=== PATIENT | male | born 1965 | race Hispanic/Latino ===

== ENCOUNTER 2019-12-10 16:02 | Inpatient (IN) | payer OTHER, SELFPAY ==
[2019-12-10] MEDS ORDERED: Acetaminophen 500 MG TAB ONE (16:13)
[2019-12-10 16:39] LABS: #Lymphocytes 0.7 thou/uL (1.20-3.40); #Monocytes 0.5 thou/uL (0.11-0.59); #Neutrophils 7.7 thou/uL (1.40-6.50); %Eosinophils 0.1 % (0.0-10.0); %Lymphocytes 7.4 % (21.0-51.0); %Monocytes 5.3 % (0.0-10.0); %Neutrophils 87.2 % (42.0-75.0); Hemoglobin 16.6 g/dL (14.0-18.0); Mean Corpuscular HGB CONC 35.2 g/dL (32.0-36.0); Mean Corpuscular Hemoglobin 33.3 pg (27.0-31.0); Mean Corpuscular Volume 94.6 fL (78.0-98.0); Mean Platelet Volume 7.5 fL (7.4-10.4); Platelet Count 256 thou/uL (130-400); RBC Distribution Width 12.9 % (11.5-14.5); Red Blood Cell (RBC) Count 4.98 mill/uL (4.70-6.10); White Blood Cell (WBC) Count 8.8 thou/uL (4.8-10.8)
[2019-12-10] MEDS ORDERED: Cefepime 2 GM VIAL ONE (16:41)
[2019-12-10 16:52] LABS: Bacteria/HPF None Seen HPF (None Seen); Bilirubin Negative (Negative); Blood, Urine Trace (Negative); Clarity Clear (Clear); Glucose, Urine (Dipstick) Normal (Negative); Leukocyte Negative Leu/uL (Negative); Nitrite Negative (Negative); Protein, Urine (Dipstick) 100 mg/dL (Neg-Trace); RBC/HPF 0-3 HPF (0-3); Squamous Epithelial None Seen HPF (0-3)
[2019-12-10 17:13] LABS: ALT (SGPT) 107 U/L (8-55); AST (SGOT) 96 U/L (5-34); Albumin 4.1 g/dL (3.5-5.0); Alkaline Phosphatase 95 U/L (40-110); Anion Gap 15 mmol/L (10-20); BUN (Urea Nitrogen) 11 mg/dL (8.4-25.7); Calc. Creatinine Clearance 0 mL/min (70-130); Calcium 9.6 mg/dL (7.8-10.44); Carbon Dioxide 25 mmol/L (22-29); Chloride 93 mmol/L (98-107); Estimated GFR-MDRD 83; Globulin 4.6 g/dL (2.4-3.5); Glucose 109 mg/dL (70-105); Potassium 3.5 mmol/L (3.5-5.1); Protein, Total 8.7 g/dL (6.0-8.3); Sodium 129 mmol/L (136-145)
[2019-12-10] MEDS ORDERED: Vancomycin 1 GM/200 ML BAG ONE (17:21)
--- NOTE | 2019-12-10 19:49 | PDOC.HHP ---
Hospitalist HPI - History of Present Illness Fever, chills, shortness of breath History of Present Illness: Patient with no significant PMH calls service with cc of about 1 week progression of fever, chills and new onset shortness of breath. Tells me that his fever has been recorded as high as 104. Refers a very mild non-productive cough and shortness of breath that only started today. 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 He has followed standard precautions with all encounters. To his recollection there is no recent sick contacts. In the ED he is noted to be initially tachycardic and febrile with T of 100.6, currently not requiring any oxygen. Chest x-ray does show evidence of RUL infiltrate suggestive of PNA. Hospitalist ROS - Review of Systems Constitutional: reports: fever, chills, sweats, malaise Eyes: denies: pain, vision change, conjunctivae inflammation, eyelid inflammation, redness, other ENT: denies: ear pain, ear discharge, nose pain, nose discharge, nose congestion , mouth pain, mouth swelling, throat pain, throat swelling, other Respiratory: reports: cough, dry, shortness of breath, SOB with excertion. denies: sputum, wheezing Cardiovascular: denies: chest pain, palpitations, orthopnea, paroxysmal noc. dyspnea, edema, light headedness, other Gastrointestinal: denies: nausea, vomiting, abdominal pain, diarrhea, constipation, melena, hematochezia, other Genitourinary: denies: dysuria, frequency, incontinence, hematuria, retention, other Musculoskeletal: denies: neck pain, shoulder pain, arm pain, back pain, hand pain, leg pain, foot pain, other - Medication Medications: No home medications Hospitalist History - Past Medical History Cardiac: denies: no pertinent history, AFIB, CAD, CHF, HTN, MA, Syncope, Hyperlipidemia, Mitral valve stenosis, Aortic stenosis, Valve insufficiency, Pulmonary hypertension, Other Pulmonary: denies: no pertinent history, angina, asthma, bronchitis, CVA/TIA/ stroke, congestive heart failure, COPD, deep vein thrombosis, emphysema, heart attack, high cholesterol, HIV/AIDS, hypertension, lung disease, pneumonia, previously intubated, pulmonary embolism, Other Gastrointestinal: denies: no pertinent history, Constipation, Diverticulosis, GERD, GI bleed, Gastritis, Hemorrhoids, Inflam bowel disease, Irritable bowel disease, Peptic ulcer disease, Other Infectious Disease: denies: no pertinent history, Bacterial vaginosis, [place], Gonorrhea, HIV, Human papilloma virus, Herpes simplex 1, Herpes simplex 2, Herpes zoster, Other - Exam General Appearance: NAD, awake alert ENT: negative: normocephalic atraumatic, no oropharyngeal lesions, moist mucosa , dry oral mucosa Neck: negative: supple, symmetric, no JVD, no thyromegaly, no lymphadenopathy, no carotid bruit, JVD Heart: no murmur, no gallops, no rubs Heart - other findings: Borderline tachycardia of 106 Respiratory: CTAB, no wheezes, no rales, no ronchi Gastrointestinal: soft, non-tender, non-distended, normal bowel sounds Extremities: no cyanosis, no clubbing, no edema Neurological: cranial nerve grossly intact, normal sensation to touch, no weakness, no focal deficits, no new deficit Musculoskeletal: normal tone, normal strength, no muscle wasting Psychiatric: normal affect, normal behavior, A&O x 3 Hospitalist Results - Labs Result Diagrams: 12/10/19 16:25 12/10/19 16:25 Lab results: WBC 8.8 thou/uL (4.8-10.8) 12/10/19 16:25 Hgb 16.6 g/dL (14.0-18.0) 12/10/19 16:25 Hct 47.1 % (42.0-52.0) 12/10/19 16:25 MCV 94.6 fL (78.0-98.0) 12/10/19 16:25 Plt Count 256 thou/uL (130-400) 12/10/19 16:25 Neutrophils % 87.2 % (42.0-75.0) H 12/10/19 16:25 Sodium 129 mmol/L (136-145) L 12/10/19 16:25 Potassium 3.5 mmol/L (3.5-5.1) 12/10/19 16:25 Chloride 93 mmol/L (98-107) L 12/10/19 16:25 Carbon Dioxide 25 mmol/L (22-29) 12/10/19 16:25 BUN 11 mg/dL (8.4-25.7) 12/10/19 16:25 Creatinine 0.95 mg/dL (0.7-1.3) 12/10/19 16:25 Glucose 109 mg/dL (70-105) H 12/10/19 16:25 Lactic Acid 1.7 mmol/L (0.5-2.2) 12/10/19 16:25 Calcium 9.6 mg/dL (7.8-10.44) 12/10/19 16:25 Total Bilirubin 1.0 mg/dL (0.2-1.2) 12/10/19 16:25 AST 96 U/L (5-34) H 12/10/19 16:25 ALT 107 U/L (8-55) H 12/10/19 16:25 Alkaline Phosphatase 95 U/L (40-110) 12/10/19 16:25 Serum Total Protein 8.7 g/dL (6.0-8.3) H 12/10/19 16:25 Albumin 4.1 g/dL (3.5-5.0) 12/10/19 16:25 Urine Ketones 20 mg/dL (Negative) A 12/10/19 16:22 Urine Blood Trace (Negative) A 12/10/19 16:22 Urine Nitrite Negative (Negative) 12/10/19 16:22 Ur Leukocyte Esterase Negative Brittany/uL (Negative) 12/10/19 16:22 Urine RBC 0-3 HPF (0-3) 12/10/19 16:22 Urine WBC 4-6 HPF (0-3) A 12/10/19 16:22 Ur Squamous Epith Cells None Seen HPF (0-3) 12/10/19 16:22 Urine Bacteria None Seen HPF (None Seen) 12/10/19 16:22 - Radiology Interpretation Chest x-ray Status: image reviewed by me (RUL infiltrate suggestive of PNA) Hospitalist H&P A/P - Problem (1) Sepsis Code(s): A41.9 - SEPSIS, UNSPECIFIED ORGANISM Status: Acute Qualifiers: Sepsis type: sepsis due to unspecified organism Sepsis acute organ dysfunction status: without acute organ dysfunction Qualified Code(s): A41.9 - Sepsis, unspecified organism (2) Pneumonia Code(s): J18.9 - PNEUMONIA, UNSPECIFIED ORGANISM Status: Acute Qualifiers: Pneumonia type: due to unspecified organism Laterality: right Lung location: upper lobe of lung Qualified Code(s): J18.9 - Pneumonia, unspecified organism - Plan Plan: Pneumonia Presents with fever, chills, cough, shortness of breath Chest x-ray with RUL infiltrate Per my discussion with ED provider negative for COVID19 x 1 Repeat COVID19 testing is negative Will start patient on IV ABX: Ceftriaxone and Azithromycin for CAP Continue with IVF hydration Continue with oxygen support PRN Monitor hydrodynamics closely Awaiting 2nd COVID19 testing; will continue with droplet precautions Sepsis Presents with tachycardia, fever, chest x-ray suggestive of PNA Continue with IV ABX and IVF per PNA plan Monitor hemodynamics closely DVT PPX: Lovenox FULL CODE
[2019-12-10] MEDS ORDERED: Ondansetron PF 4 MG/2 ML Vial IVP PRN (20:43)
[2019-12-10] MEDS ORDERED: Senokot S 8.6-50 MG TAB PO PRN (20:43)
[2019-12-10 21:20] VITALS: BMI 31.4
[2019-12-10] MEDS: Acetaminophen 325 MG TAB PO PRN (21:43)
[2019-12-10] MEDS: Guaifenesin DM 100-10/5 ML UDCUP PO PRN (21:44)
[2019-12-10] MEDS: Sodium Chloride 0.9% 1,000 ML IV SCH (21:44)
[2019-12-11] MEDS: Acetaminophen 325 MG TAB PO PRN ×5 (02:25→20:53)
[2019-12-11] MEDS: Sodium Chloride 0.9% 1,000 ML IV SCH ×3 (05:15→21:00)
[2019-12-11 05:49] LABS: Anion Gap 11 mmol/L (10-20); BUN (Urea Nitrogen) 11 mg/dL (8.4-25.7); Calc. Creatinine Clearance 136 mL/min (70-130); Calcium 8.4 mg/dL (7.8-10.44); Carbon Dioxide 24 mmol/L (22-29); Chloride 101 mmol/L (98-107); Estimated GFR-MDRD Greater than 90; Glucose 105 mg/dL (70-105); Potassium 3.7 mmol/L (3.5-5.1); Sodium 132 mmol/L (136-145)
[2019-12-11 06:26] LABS: Band 9 % (5-11); Hemoglobin 13.9 g/dL (14.0-18.0); Hypochromia SLIGHT = 6-15 cells (100X) (0-5/hpf); Lymphocytes 15 % (21-51); MDiff Complete? YES; Mean Corpuscular HGB CONC 32.8 g/dL (32.0-36.0); Mean Corpuscular Hemoglobin 31.2 pg (27.0-31.0); Mean Corpuscular Volume 95.3 fL (78.0-98.0); Mean Platelet Volume 7.6 fL (7.4-10.4); Monocytes 4 % (0-10); Neutrophil 72 % (42-75); Platelet Count 235 thou/uL (130-400); Platelet Morphology Comment Appears Adequate; RBC Distribution Width 12.8 % (11.5-14.5); Red Blood Cell (RBC) Count 4.45 mill/uL (4.70-6.10); White Blood Cell (WBC) Count 7.4 thou/uL (4.8-10.8)
[2019-12-11] MEDS: Enoxaparin Sodium 40 MG/0.4 ML SYRINGE SC SCH (09:09)
--- NOTE | 2019-12-11 14:18 | PDOC.HOSPP ---
- Subjective Encounter Date: 12/11/19 Encounter Time: 10:20 Subjective: pt sitting in the chair, comfortable, still had temp this am. 1st COVID negative; hyponatremia - Objective Vital Signs & Weight: Vital Signs (12 hours) Temp Pulse Resp BP Pulse Ox 12/11/19 12:32 101.1 F H 93 18 134/79 98 12/11/19 09:25 99.6 F 80 18 131/77 95 12/11/19 06:00 102.7 F H 88 17 158/83 H 97 Weight Weight 206 lb 9.523 oz I&O: 12/10/19 12/11/19 12/12/19 06:59 06:59 06:59 Intake Total 1800 Balance 1800 Result Diagrams: 12/11/19 05:12 12/11/19 05:12 Hospitalist ROS - Medication Medications: Active Medications Generic Name Dose Route Start Last Admin Trade Name Freq PRN Reason Stop Dose Admin Acetaminophen 650 mg 12/10/19 20:43 12/11/19 12:32 Tylenol PO 650 mg Q4H PRN Administration Headache/Fever/Mild Pain (1-3) Enoxaparin Sodium 40 mg 12/11/19 09:00 12/11/19 09:09 Lovenox SC 40 mg 0900 TITUS Administration Guaifenesin/Dextromethorphan 15 ml 12/10/19 20:43 12/10/19 21:44 Robitussin Dm PO 15 ml Q4H PRN Administration Cough Sodium Chloride 1,000 mls @ 125 mls/hr 12/10/19 20:45 12/11/19 12:20 Normal Saline 0.9% IV 1,000 mls .Q8H TITUS Administration - Exam General Appearance: NAD, awake alert Eye: PERRL ENT: normocephalic atraumatic Neck: supple Heart: RRR, normal peripheral pulses Respiratory: normal chest expansion Gastrointestinal: soft, normal bowel sounds Hosp A/P - Plan (1) Sepsis d/t Pneumonia tachycardia, fever, chest x-ray suggestive of PNA Continue with IV ABX Ceftriaxone and Azithromycin for CAP and IVF - fw on the paul - outside COVID19 testing is negative - due to ongoing fever, he was tested again, and results are pending. - 2nd COVID19 testing; will continue with droplet precautions
[2019-12-11] MEDS: Guaifenesin DM 100-10/5 ML UDCUP PO PRN (17:35)
[2019-12-11] MEDS ORDERED: cefTRIAXone\\ROCEPHIN 1 GM in Sodium Chloride 0.9% 100 ML IVPB SCH (21:00)
[2019-12-12] MEDS: Sodium Chloride 0.9% 1,000 ML IV SCH ×2 (04:51→12:09)
[2019-12-12 06:52] LABS: #Eosinphils 0.1 thou/uL (0.0-0.7); #Lymphocytes 1.1 thou/uL (1.20-3.40); #Monocytes 0.8 thou/uL (0.11-0.59); #Neutrophils 4.6 thou/uL (1.40-6.50); %Basophils 0.5 % (0.0-1.0); %Eosinophils 1.9 % (0.0-10.0); %Monocytes 11.6 % (0.0-10.0); %Neutrophils 69.1 % (42.0-75.0); Hemoglobin 12.9 g/dL (14.0-18.0); Mean Corpuscular HGB CONC 33.8 g/dL (32.0-36.0); Mean Corpuscular Hemoglobin 31.9 pg (27.0-31.0); Mean Corpuscular Volume 94.4 fL (78.0-98.0); Mean Platelet Volume 7.3 fL (7.4-10.4); Platelet Count 244 thou/uL (130-400); Red Blood Cell (RBC) Count 4.03 mill/uL (4.70-6.10); White Blood Cell (WBC) Count 6.6 thou/uL (4.8-10.8)
[2019-12-12 07:13] LABS: Anion Gap 12 mmol/L (10-20); BUN (Urea Nitrogen) 9 mg/dL (8.4-25.7); Calc. Creatinine Clearance 164 mL/min (70-130); Carbon Dioxide 20 mmol/L (22-29); Chloride 107 mmol/L (98-107); Estimated GFR-MDRD Greater than 90; Glucose 103 mg/dL (70-105); Potassium 3.4 mmol/L (3.5-5.1); Sodium 136 mmol/L (136-145)
[2019-12-12] MEDS: Enoxaparin Sodium 40 MG/0.4 ML SYRINGE SC SCH (08:11)
[2019-12-12] MEDS: Acetaminophen 325 MG TAB PO PRN ×3 (08:11→17:47)
[2019-12-12] MEDS: Guaifenesin DM 100-10/5 ML UDCUP PO PRN ×3 (08:11→17:47)
[2019-12-12] MEDS ORDERED: Potassium Chloride 20 MEQ TAB PO SCH (08:45)
[2019-12-12] MEDS ORDERED: Sodium Chloride 0.9% 1,000 ML IV SCH (18:33)
--- NOTE | 2019-12-12 19:01 | PDOC.HOSPP ---
- Subjective Encounter Date: 12/12/19 Encounter Time: 18:40 Subjective: f/u for RUL PNA and COVID-19 r/o. Feels better overall today. Minimal fever spikes and receiving Levaquin. - Objective Vital Signs & Weight: Vital Signs (12 hours) Temp Pulse Resp BP Pulse Ox 12/12/19 17:31 98.0 F 66 18 122/80 99 12/12/19 13:39 98.1 F 70 18 134/70 98 12/12/19 09:14 100.6 F H 80 18 147/91 H 96 12/12/19 08:00 96 Weight Weight 206 lb 9.523 oz I&O: 12/11/19 12/12/19 12/13/19 06:59 06:59 06:59 Intake Total 1800 2200 Balance 1800 2200 Result Diagrams: 12/12/19 06:23 12/12/19 06:23 Additional Labs: Microbiology 12/11/19 09:25 Sputum Respiratory Culture - Preliminary 12/10/19 16:36 Venous blood - Right Arm Blood Culture - Preliminary NO GROWTH AT 48 HOURS 12/10/19 16:25 Venous blood - Left Arm Blood Culture - Preliminary NO GROWTH AT 48 HOURS Laboratory Tests 12/10/19 12/11/19 16:25 05:12 Sodium 129 L 132 L AST 96 H ALT 107 H Hospitalist ROS - Medication Medications: Active Medications Generic Name Dose Route Start Last Admin Trade Name Freq PRN Reason Stop Dose Admin Acetaminophen 650 mg 12/10/19 20:43 12/12/19 17:47 Tylenol PO 650 mg Q4H PRN Administration Headache/Fever/Mild Pain (1-3) Enoxaparin Sodium 40 mg 12/11/19 09:00 12/12/19 08:11 Lovenox SC 40 mg 0900 TITUS Administration Guaifenesin/Dextromethorphan 15 ml 12/10/19 20:43 12/12/19 17:47 Robitussin Dm PO 15 ml Q4H PRN Administration Cough Levofloxacin 750 mg/ Device 150 mls @ 100 mls/hr 12/11/19 16:00 12/12/19 15: 23 IVPB 150 mls Q24HR TITUS Administration Sodium Chloride 1,000 mls @ 100 mls/hr 12/12/19 18:33 12/12/19 18:40 Normal Saline 0.9% IV 1,000 mls .Q10H TITUS Administration Sodium Chloride 10 ml 12/12/19 09:00 12/12/19 08:43 Flush - Normal Saline IVF Not Given Q12HR TITUS - Exam General Appearance: NAD, awake alert Eye: PERRL, anicteric sclera ENT: normocephalic atraumatic, no oropharyngeal lesions Neck: supple, symmetric, no JVD, no thyromegaly Heart: RRR, no murmur, no gallops, no rubs, normal peripheral pulses Respiratory: CTAB, no wheezes, no rales, no ronchi, normal chest expansion Gastrointestinal: soft, non-tender, non-distended, normal bowel sounds, no palpable masses Extremities: no cyanosis, no clubbing, no edema Skin: normal turgor, no lesions Neurological: cranial nerve grossly intact, no new deficit Musculoskeletal: normal tone, normal strength, no muscle wasting Psychiatric: normal affect, A&O x 3 Hosp A/P (1) Bacterial pneumonia Code(s): J15.9 - UNSPECIFIED BACTERIAL PNEUMONIA Status: Acute Plan: RUL involvement likely gram + cocci, await 2nd COVID-19 sample, continue Levaquin (2) Sepsis due to pneumonia Code(s): J18.9 - PNEUMONIA, UNSPECIFIED ORGANISM; A41.9 - SEPSIS, UNSPECIFIED ORGANISM Status: Acute Plan: Resolving, continue mgmt as outlined in #1 (3) Hypokalemia Code(s): E87.6 - HYPOKALEMIA Status: Acute Plan: KCL supplementation, repeat K+ level in am (4) Hyponatremia Code(s): E87.1 - HYPO-OSMOLALITY AND HYPONATREMIA Status: Acute Plan: Resolving with IV NS - Plan continue antibiotics, social insurance analyst, respiratory therapy, DVT proph w/SCDs Stable overall Convert Levaquin 750mg po daily OOB/ambulate Await 2nd COVID-19 after initial negative x 1 KCL supplementation AM lab: CMP Likely home in 24h
[2019-12-12] MEDS: Potassium Chloride 20 MEQ TAB PO SCH (20:28)
[2019-12-13] MEDS: Acetaminophen 325 MG TAB PO PRN (01:58)
[2019-12-13] MEDS: Potassium Chloride 20 MEQ TAB PO SCH (07:52)
[2019-12-13] MEDS: Enoxaparin Sodium 40 MG/0.4 ML SYRINGE SC SCH (07:52)
[2019-12-13 08:13] LABS: ALT (SGPT) 453 U/L (8-55); AST (SGOT) 406 U/L (5-34); Alkaline Phosphatase 105 U/L (40-110); Anion Gap 13 mmol/L (10-20); BUN (Urea Nitrogen) 10 mg/dL (8.4-25.7); Bilirubin, Total 0.7 mg/dL (0.2-1.2); Calc. Creatinine Clearance 167 mL/min (70-130); Calcium 8.7 mg/dL (7.8-10.44); Carbon Dioxide 23 mmol/L (22-29); Chloride 106 mmol/L (98-107); Estimated GFR-MDRD Greater than 90; Globulin 3.4 g/dL (2.4-3.5); Glucose 105 mg/dL (70-105); Potassium 3.9 mmol/L (3.5-5.1); Protein, Total 6.4 g/dL (6.0-8.3); Sodium 138 mmol/L (136-145)
[2019-12-13] MEDS: Guaifenesin DM 100-10/5 ML UDCUP PO PRN (08:33)
[2019-12-13 08:53] VITALS: BP 142/68; TEMP 97.8
--- NOTE | 2019-12-13 10:04 | DIS ---
DATE OF ADMISSION: 12/10/2019 DATE OF DISCHARGE: 12/13/2019 DISCHARGE DIAGNOSES: 1. Bacterial pneumonia, right upper lobe, suspected gram-positive cocci. 2. Sepsis secondarily to pneumonia, resolved. 3. Hypokalemia, resolved. 4. Hyponatremia, resolved. 5. Transaminitis, likely iatrogenic due to acetaminophen. 6. COVID-19 ruled out. CONSULTATIONS: None. PERTINENT LABORATORY AND X-RAY FINDINGS: Sodium ranged between 129 to 138, potassium ranged between 3.4 to 3.9. AST ranged between 96 to 406, ALT ranged between 107 to 453, total bilirubin ranged between 0.7 to 1.0, and alkaline phosphatase ranged between 95 to 105. CBC showed a white blood cell count ranging between 6.6 to 8.8, hemoglobin ranged between 12.9 to 16.6. Blood cultures x2 dated 12/10/2019, showed no growth at 48 hours. Respiratory culture dated 12/11/2019, showed a few normal respiratory nidhi. COVID-19 PCR negative x2. Portable chest x-ray dated 12/10/2019, showed right upper lobe infiltrate consistent with pneumonia. HOSPITAL COURSE: The patient was initially admitted to the medical floor after presenting with fever, chills, shortness of breath, and temperature of 104 degrees Fahrenheit. The patient underwent extensive evaluation including chest imaging showing a right upper lobe infiltrate. The patient also underwent COVID-19 rule out due to potential exposure history. The patient was placed on respiratory and droplet isolation and continued on broad-spectrum IV antibiotic therapy. The patient had initial COVID-19 PCR negative. However, due to the patient's risk history, a second COVID-19 PCR was submitted and negative. The patient transitioned from Rocephin and azithromycin to Levaquin with recommendations to complete a 10-day course of antibiotic therapy. The patient was noted with mild transaminitis on routine metabolic screening, likely due to acetaminophen. The patient was told to avoid acetaminophen and may use ibuprofen as an alternative for fever and myalgias. Recommendations also were to repeat LFTs on an outpatient basis after discharge. Overall, the patient did remain clinically stable during the hospital course, tolerating regular oral intake with stable vital signs. I have examined the patient at the time of discharge and discussed followup instructions. The patient verbalized understanding and in agreement and ready for discharge 12/13/2019. DISCHARGE MEDICATIONS: Levaquin 750 mg p.o. daily x7 days. FOLLOW UP: The patient may follow up with his primary care provider, Dr. Lee Reynolds, within 7 days of discharge. CONDITION ON DISCHARGE: Stable. ACTIVITY: Ad-amanda. DIET: Regular. SPECIAL INSTRUCTIONS: Repeat liver function tests in 7 to 10 days. Repeat chest x-ray 2 weeks after discharge. CODE STATUS: Full. DISPOSITION: Home on 12/13/2019. TIME SPENT: Total time preparing and coordinating discharge is 32 minutes. Job ID: [id number]
== END 2019-12-13 10:13 | disposition home or self-care (01) | DRG 871 ==
LOC: ERS 16:02 → T4-B 19:49
PROVIDERS: ADMIT Internal Medicine; ATTEND Internal Medicine
DX: A41.9 Sepsis, unspecified organism (principal); J15.9 Unspecified bacterial pneumonia; E87.1 Hypo-osmolality and hyponatremia; E87.6 Hypokalemia; R74.0 Nonspecific elevation of levels of transaminase and lactic acid dehydrogenase [LDH]; T39.1X5A Adverse effect of 4-Aminophenol derivatives, initial encounter
CPT/HCPCS: 36415; 80048; 80053; 81003; 81015; 83605; 85025; 87040; 87070; 87205; 93005; 96365; 96366; 96367; J0692; J1650; J1956; J3370